=== PATIENT | male | born 1960 | race Caucasian/White ===

== ENCOUNTER 2017-09-29 16:37 | Inpatient (IN) | payer MEDICAID ==
[~2017-09-29] VITALS: Ht 175.3 cm; Wt 72.7 kg
[2017-09-29 17:53] LABS: BASOPHILS 0.1 % (0-2); EOSINOPHILS 0.2 % (0-7); HEMATOCRIT 41.9 % (42.0-54.0); IMMATURE GRANULOCYTES 0.3 % (0-5); LYMPHOCYTES 7.6 % (15-50); MCH 29.7 pg (26.0-34.0); MCHC 33.4 g/dL (31.0-37.0); MEAN PLATELET VOLUME 10.7 fL (7.4-10.4); MONOCYTES 6.7 % (2-11); NEUTROPHILS 85.1 % (40-80); PLATELET COUNT 189 10x3/uL (130-400); RBC 4.71 10x6/uL (4.20-6.10); RDW 13.9 % (11.5-14.5); WBC 16.4 10x3/uL (4.8-10.8)
[2017-09-29 17:56] LABS: ALBUMIN 4.2 g/dL (3.4-5.0); ALKALINE PHOSPHATASE 46 U/L (46-116); ALT (SGPT) 25 U/L (10-68); BILIRUBIN - TOTAL 0.55 mg/dL (0.2-1.3); C-REACTIVE PROTEIN 0.7 mg/dL (0.0-0.9); CALC OSMOLALITY 279 mosm/kg (275-300); CALCIUM 8.5 mg/dL (8.5-10.1); CARBON DIOXIDE 27.2 mmol/L (21.0-32.0); CHLORIDE - SERUM 102 mmol/L (98-107); GLUCOSE 99 mg/dL (74-106); POTASSIUM - SERUM 3.2 mmol/L (3.5-5.1); PROTEIN - SERUM 7.6 g/dL (6.4-8.2); SODIUM 139 mmol/L (136-145); UREA NITROGEN 17 mg/dL (7-18); eGFR NON AFRICAN AMERICAN 82 mL/min (90-120)
[2017-09-29 18:57] LABS: ERYTHROCYTE SEDIMENTATION RATE 5 mm/hr (0-20)
[2017-09-29 20:38] VITALS: BP 145/77
[2017-09-29 20:54] VITALS: BP 145/77; BMI 24.8
[2017-09-29] MEDS ORDERED: KLONOPIN1 MG PO (21:13)
[2017-09-29] MEDS ORDERED: PERCOCET 10/3251 TA1 PO (21:15)
[2017-09-29] MEDS ORDERED: ADDERALL 30 MG30 MG PO (21:16)
[2017-09-30] VITALS (7 sets, daily range): BP systolic 119–158; BP diastolic 65–113
[2017-10-01 04:00] VITALS: BP 140/65
[2017-10-01 05:09] LABS: BASOPHILS 0.1 % (0-2); EOSINOPHILS 0.7 % (0-7); HEMATOCRIT 42.9 % (42.0-54.0); HEMOGLOBIN 14.3 g/dL (13.5-17.5); IMMATURE GRANULOCYTES 0.3 % (0-5); LYMPHOCYTES 11.2 % (15-50); MCHC 33.3 g/dL (31.0-37.0); MCV 89.9 fL (80.0-100.0); MONOCYTES 8.2 % (2-11); NEUTROPHILS 79.5 % (40-80); PLATELET COUNT 164 10x3/uL (130-400); RBC 4.77 10x6/uL (4.20-6.10); WBC 14.4 10x3/uL (4.8-10.8)
[2017-10-01 06:10] LABS: ALBUMIN 3.4 g/dL (3.4-5.0); ALKALINE PHOSPHATASE 48 U/L (46-116); ALT (SGPT) 25 U/L (10-68); CHLORIDE - SERUM 102 mmol/L (98-107); GLUCOSE 93 mg/dL (74-106); PROTEIN - SERUM 7.2 g/dL (6.4-8.2); SODIUM 139 mmol/L (136-145); eGFR NON AFRICAN AMERICAN 82 mL/min (90-120)
[2017-10-01 06:15] LABS: CALC OSMOLALITY 276 mosm/kg (275-300); POTASSIUM - SERUM 3.8 mmol/L (3.5-5.1); UREA NITROGEN 11 mg/dL (7-18)
[2017-10-01 08:48] VITALS: BP 129/76
[2017-10-01 12:16] VITALS: Ht 175.3 cm; Wt 72.7 kg
[2017-10-01 13:24] VITALS: BP 138/88
[2017-10-01 16:40] VITALS: BP 159/66
[2017-10-01 19:00] VITALS: BP 123/68
[2017-10-02 04:00] VITALS: BP 113/75
[2017-10-02 05:39] LABS: BASOPHILS 0.2 % (0-2); EOSINOPHILS 1.6 % (0-7); HEMATOCRIT 44.1 % (42.0-54.0); HEMOGLOBIN 14.7 g/dL (13.5-17.5); IMMATURE GRANULOCYTES 0.2 % (0-5); LYMPHOCYTES 12.7 % (15-50); MCH 30.1 pg (26.0-34.0); MCHC 33.3 g/dL (31.0-37.0); MCV 90.4 fL (80.0-100.0); MEAN PLATELET VOLUME 10.7 fL (7.4-10.4); MONOCYTES 9.8 % (2-11); NEUTROPHILS 75.5 % (40-80); PLATELET COUNT 194 10x3/uL (130-400); RBC 4.88 10x6/uL (4.20-6.10); RDW 13.8 % (11.5-14.5); WBC 12.6 10x3/uL (4.8-10.8)
[2017-10-02 06:20] LABS: ALBUMIN 3.5 g/dL (3.4-5.0); ANION GAP 14.3 mmol/L (8-16); BILIRUBIN - TOTAL 0.7 mg/dL (0.2-1.3); CALCIUM 9.4 mg/dL (8.5-10.1); CARBON DIOXIDE 29.7 mmol/L (21.0-32.0); CREATININE - SERUM 1.1 mg/dL (0.6-1.3); PROTEIN - SERUM 7.8 g/dL (6.4-8.2)
[2017-10-02 09:13] VITALS: BP 124/82
[2017-10-02 11:58] VITALS: BP 144/98
[2017-10-02 15:31] LABS: ACID FAST SMEAR Negative (()); AFB SPECIMEN PROCESSING Concentration (())
[2017-10-02 16:47] VITALS: BP 142/101
[2017-10-02 20:00] VITALS: BP 150/78
[2017-10-03] VITALS: BP 128/84
[2017-10-03 04:00] VITALS: BP 115/86
[2017-10-03 05:47] LABS: BASOPHILS 0.2 % (0-2); EOSINOPHILS 2.3 % (0-7); HEMATOCRIT 41.6 % (42.0-54.0); HEMOGLOBIN 13.9 g/dL (13.5-17.5); IMMATURE GRANULOCYTES 0.3 % (0-5); LYMPHOCYTES 12.5 % (15-50); MCH 30.2 pg (26.0-34.0); MCHC 33.4 g/dL (31.0-37.0); MCV 90.4 fL (80.0-100.0); MEAN PLATELET VOLUME 10.4 fL (7.4-10.4); MONOCYTES 11.7 % (2-11); PLATELET COUNT 177 10x3/uL (130-400); RDW 13.6 % (11.5-14.5); WBC 10.4 10x3/uL (4.8-10.8)
[2017-10-03 06:14] LABS: ALKALINE PHOSPHATASE 52 U/L (46-116); ALT (SGPT) 23 U/L (10-68); CALC OSMOLALITY 277 mosm/kg (275-300); CALCIUM 8.9 mg/dL (8.5-10.1); CARBON DIOXIDE 27.9 mmol/L (21.0-32.0); CHLORIDE - SERUM 104 mmol/L (98-107); GLUCOSE 91 mg/dL (74-106); POTASSIUM - SERUM 4.6 mmol/L (3.5-5.1); PROTEIN - SERUM 7.1 g/dL (6.4-8.2); SODIUM 139 mmol/L (136-145); UREA NITROGEN 13 mg/dL (7-18); eGFR NON AFRICAN AMERICAN 82 mL/min (90-120)
[2017-10-03 09:16] VITALS: BP 121/88
[2017-10-03 12:54] VITALS: BP 144/89
[2017-10-03 15:25] LABS: FUNGUS STAIN Final report (())
[2017-10-03 17:05] VITALS: BP 148/94
[2017-10-03 21:25] VITALS: BP 118/74
[2017-10-04 00:50] VITALS: BP 105/79
[2017-10-04 04:50] VITALS: BP 133/68
[2017-10-04 05:54] LABS: BASOPHILS 0.3 % (0-2); EOSINOPHILS 3.3 % (0-7); HEMATOCRIT 40.7 % (42.0-54.0); HEMOGLOBIN 13.7 g/dL (13.5-17.5); IMMATURE GRANULOCYTES 0.2 % (0-5); LYMPHOCYTES 14.5 % (15-50); MCH 30.1 pg (26.0-34.0); MCHC 33.7 g/dL (31.0-37.0); MCV 89.5 fL (80.0-100.0); MEAN PLATELET VOLUME 9.9 fL (7.4-10.4); MONOCYTES 13.6 % (2-11); NEUTROPHILS 68.1 % (40-80); PLATELET COUNT 187 10x3/uL (130-400); RBC 4.55 10x6/uL (4.20-6.10); RDW 13.3 % (11.5-14.5); WBC 8.7 10x3/uL (4.8-10.8)
[2017-10-04 06:16] LABS: ALBUMIN 2.9 g/dL (3.4-5.0); ALKALINE PHOSPHATASE 52 U/L (46-116); ALT (SGPT) 24 U/L (10-68); BILIRUBIN - TOTAL 0.37 mg/dL (0.2-1.3); CALC OSMOLALITY 274 mosm/kg (275-300); CALCIUM 8.6 mg/dL (8.5-10.1); CARBON DIOXIDE 26.6 mmol/L (21.0-32.0); CHLORIDE - SERUM 102 mmol/L (98-107); CREATININE - SERUM 0.8 mg/dL (0.6-1.3); GLUCOSE 85 mg/dL (74-106); POTASSIUM - SERUM 4.1 mmol/L (3.5-5.1); PROTEIN - SERUM 7.1 g/dL (6.4-8.2); SODIUM 138 mmol/L (136-145); UREA NITROGEN 13 mg/dL (7-18); eGFR NON AFRICAN AMERICAN > 90 mL/min (90-120)
[2017-10-04 08:08] VITALS: BP 135/94
[2017-10-04 11:06] VITALS: BP 141/85
[2017-10-04 15:45] VITALS: BP 140/88
[2017-10-04 20:00] VITALS: BP 146/91
[2017-10-05 01:00] VITALS: BP 142/87
[2017-10-05 05:11] VITALS: BP 133/87
[2017-10-05 06:07] LABS: BASOPHILS 0.3 % (0-2); EOSINOPHILS 3.4 % (0-7); HEMATOCRIT 40.4 % (42.0-54.0); HEMOGLOBIN 13.6 g/dL (13.5-17.5); IMMATURE GRANULOCYTES 0.3 % (0-5); LYMPHOCYTES 12.7 % (15-50); MCH 29.8 pg (26.0-34.0); MCHC 33.7 g/dL (31.0-37.0); MCV 88.4 fL (80.0-100.0); MEAN PLATELET VOLUME 10.5 fL (7.4-10.4); MONOCYTES 10.4 % (2-11); NEUTROPHILS 72.9 % (40-80); PLATELET COUNT 209 10x3/uL (130-400); RBC 4.57 10x6/uL (4.20-6.10); WBC 9.7 10x3/uL (4.8-10.8)
[2017-10-05 06:29] LABS: ALBUMIN 2.9 g/dL (3.4-5.0); ALKALINE PHOSPHATASE 49 U/L (46-116); ALT (SGPT) 22 U/L (10-68); BILIRUBIN - TOTAL 0.36 mg/dL (0.2-1.3); CALC OSMOLALITY 275 mosm/kg (275-300); CALCIUM 8.4 mg/dL (8.5-10.1); CARBON DIOXIDE 25.1 mmol/L (21.0-32.0); CHLORIDE - SERUM 104 mmol/L (98-107); CREATININE - SERUM 0.9 mg/dL (0.6-1.3); GLUCOSE 86 mg/dL (74-106); POTASSIUM - SERUM 3.7 mmol/L (3.5-5.1); PROTEIN - SERUM 6.9 g/dL (6.4-8.2); SODIUM 138 mmol/L (136-145); UREA NITROGEN 15 mg/dL (7-18); eGFR NON AFRICAN AMERICAN > 90 mL/min (90-120)
[2017-10-05 08:16] VITALS: BP 134/86
[2017-10-05 11:56] VITALS: BP 132/75
[2017-10-05 13:07] LABS: NEUT - BF 98 %
[2017-10-05 15:48] VITALS: BP 136/90
[2017-10-05 20:00] VITALS: BP 163/91
[2017-10-06 01:00] VITALS: BP 125/77
[2017-10-06 04:30] VITALS: BP 107/80
[2017-10-06 05:05] LABS: BASOPHILS 0.3 % (0-2); EOSINOPHILS 3.9 % (0-7); HEMATOCRIT 42.7 % (42.0-54.0); HEMOGLOBIN 14.2 g/dL (13.5-17.5); IMMATURE GRANULOCYTES 0.3 % (0-5); LYMPHOCYTES 17.5 % (15-50); MCHC 33.3 g/dL (31.0-37.0); MCV 90.1 fL (80.0-100.0); MEAN PLATELET VOLUME 10.4 fL (7.4-10.4); MONOCYTES 11.9 % (2-11); NEUTROPHILS 66.1 % (40-80); PLATELET COUNT 241 10x3/uL (130-400); RBC 4.74 10x6/uL (4.20-6.10); RDW 13.2 % (11.5-14.5); WBC 8.7 10x3/uL (4.8-10.8)
[2017-10-06 05:16] LABS: CALC OSMOLALITY 281 mosm/kg (275-300); CALCIUM 9.1 mg/dL (8.5-10.1); CHLORIDE - SERUM 107 mmol/L (98-107); GLUCOSE 91 mg/dL (74-106); SODIUM 141 mmol/L (136-145); UREA NITROGEN 15 mg/dL (7-18); eGFR NON AFRICAN AMERICAN 82 mL/min (90-120)
[2017-10-06 10:05] VITALS: BP 139/79
[2017-10-06 12:22] VITALS: BP 133/90
[2017-10-06 16:58] VITALS: BP 123/87
[2017-10-06 21:00] VITALS: BP 141/83
[2017-10-07 02:30] VITALS: BP 115/67
[2017-10-07 05:00] VITALS: BP 131/84
[2017-10-07 05:19] LABS: BASOPHILS 0.4 % (0-2); CALCIUM 9.1 mg/dL (8.5-10.1); CARBON DIOXIDE 30.5 mmol/L (21.0-32.0); CHLORIDE - SERUM 103 mmol/L (98-107); EOSINOPHILS 3.1 % (0-7); GLUCOSE 87 mg/dL (74-106); HEMATOCRIT 48.5 % (42.0-54.0); IMMATURE GRANULOCYTES 0.4 % (0-5); MCH 29.9 pg (26.0-34.0); MCV 90.5 fL (80.0-100.0); MEAN PLATELET VOLUME 10.3 fL (7.4-10.4); MONOCYTES 10.6 % (2-11); NEUTROPHILS 72.5 % (40-80); RBC 5.36 10x6/uL (4.20-6.10); RDW 12.9 % (11.5-14.5); SODIUM 142 mmol/L (136-145); WBC 10.7 10x3/uL (4.8-10.8); eGFR NON AFRICAN AMERICAN 82 mL/min (90-120)
[2017-10-07 05:20] LABS: CALC OSMOLALITY 280 mosm/kg (275-300); PLATELET COUNT 291 10x3/uL (130-400); UREA NITROGEN 11 mg/dL (7-18)
[2017-10-07 09:07] VITALS: BP 135/90
[2017-10-07 12:51] VITALS: BP 135/84
[2017-10-07 15:09] LABS: ACID FAST SMEAR Negative (()); AFB SPECIMEN PROCESSING Concentration (())
[2017-10-07 16:41] VITALS: BP 128/76
[2017-10-07 20:00] VITALS: BP 118/78
[2017-10-08 01:00] VITALS: BP 109/67
[2017-10-08 04:00] VITALS: BP 108/68
[2017-10-08 04:36] LABS: BASOPHILS 0.3 % (0-2); EOSINOPHILS 4.1 % (0-7); HEMATOCRIT 41.2 % (42.0-54.0); HEMOGLOBIN 13.9 g/dL (13.5-17.5); IMMATURE GRANULOCYTES 0.4 % (0-5); LYMPHOCYTES 13.5 % (15-50); MCH 30.1 pg (26.0-34.0); MCHC 33.7 g/dL (31.0-37.0); MCV 89.2 fL (80.0-100.0); MEAN PLATELET VOLUME 10.1 fL (7.4-10.4); MONOCYTES 12.1 % (2-11); NEUTROPHILS 69.6 % (40-80); PLATELET COUNT 254 10x3/uL (130-400); RBC 4.62 10x6/uL (4.20-6.10); WBC 10.4 10x3/uL (4.8-10.8)
[2017-10-08 04:52] LABS: CALC OSMOLALITY 282 mosm/kg (275-300); CALCIUM 8.5 mg/dL (8.5-10.1); CARBON DIOXIDE 27.7 mmol/L (21.0-32.0); CHLORIDE - SERUM 106 mmol/L (98-107); GLUCOSE 87 mg/dL (74-106); POTASSIUM - SERUM 3.7 mmol/L (3.5-5.1); SODIUM 142 mmol/L (136-145); eGFR NON AFRICAN AMERICAN 82 mL/min (90-120)
[2017-10-08 04:54] LABS: UREA NITROGEN 14 mg/dL (7-18)
[2017-10-08 08:52] VITALS: BP 110/71
[2017-10-08] MEDS ORDERED: VIBRAMYCIN 100100 MG PO (11:01)
[2017-10-08] MEDS ORDERED: FLORAJEN3 CAPS460 MG PO (11:03)
[2017-10-08 11:29] VITALS: BP 112/68
[2017-10-10 14:24] LABS: FUNGUS STAIN Final report (())
[2017-10-29 10:12] LABS: FUNGUS MYCOLOGY CULTURE Final report (())
[2017-11-05 15:09] LABS: FUNGUS MYCOLOGY CULTURE Final report (())
== END 2017-10-08 14:27 | disposition home or self-care (01) | DRG 603 ==
LOC: D.ER 16:37 → D.M2 17:37 → D.EDHOLD 17:37 → D.M2 17:52
PROVIDERS: Emergency Medicine; Family Medicine; Internal Medicine Nephrology; Orthopaedic Surgery Foot and Ankle Surgery
PROC: 0S9C3ZZ Drainage of Right Knee Joint, Percutaneous Approach (ICD-10-PCS; principal; 2017-09-30)
PROC: 0S9C3ZZ Drainage of Right Knee Joint, Percutaneous Approach (ICD-10-PCS; 2017-10-05)
DX: L03.115 Cellulitis of right lower limb (principal); E87.6 Hypokalemia; F41.9 Anxiety disorder, unspecified; R21 Rash and other nonspecific skin eruption

== ENCOUNTER → 2017-10-22 16:31 | Outpatient (CLI) | payer MEDICAID ==
[2017-10-01 12:16] VITALS: BMI 24.8
[~2017-10-22 16:31] MED LIST: ADDERALL 30 MG30 MG PO; FLORAJEN3 CAPS460 MG PO; KLONOPIN1 MG PO; PERCOCET 10/3251 TA1 PO; VIBRAMYCIN 100100 MG PO
[2017-10-22 19:35] LABS: EOS BF 6 %; MACROPHAGES BF 2 %; NEUT - BF 44 %
== END | disposition home or self-care (01) ==
LOC: D.LABREF 16:31
PROVIDERS: Nurse Practitioner Family
DX: M25.561 Pain in right knee (principal)

== ENCOUNTER 2017-10-26 09:36 | Day surgery (SDC) | payer MEDICAID ==
[~2017-10-26] VITALS: Ht 175.3 cm; Wt 72.6 kg
--- NOTE | ~2017-10-26 | OP ---
PATIENT NAME: SEVERINO THOMAS MEDICAL RECORD: [id number] :64 LOCATION:.[facility] ADMISSION DATE: SURGEON: MARLENY LOPEZ MD DATE OF OPERATION: 10/26/2017 PREOPERATIVE DIAGNOSIS: Right prepatellar septic bursitis. POSTOPERATIVE DIAGNOSIS: Right prepatellar septic bursitis. PROCEDURE: Excisional debridement of right prepatellar septic bursitis. SURGEON: Marleny Lopez MD ANESTHESIA: General. INTRAOPERATIVE COMPLICATIONS: None. SUMMARY OF PATHOLOGIC FINDINGS: Aggregate squared-cm 60. No cultures were taken. OPERATIVE SUMMARY IN DETAIL: After obtaining the appropriate preoperative orthopedic surgery consent as well as anesthetic consultation, evaluation, and clearance, the patient was brought to the operative room and placed in supine position. After adequate general laryngeal mask airway was administered, the patient's right lower extremity was prepped and draped in routine sterile fashion. The bursa was opened, purulence was noted. Cultures were taken and at this point, a combination of scalpel, rongeur and curettage was utilized to completely clean the bursa, which was inflamed to the lateral recesses of the prepatellar bursa. Approximately a liter of fluid was irrigated through the bursa. The bursa was then packed with 1-inch iodoform gauze. Sterile dressings were applied. The patient was awakened and taken to recovery room in stable condition. All final needle and sponge counts were correct. TRANSINT:[id number] Voice Confirmation ID: [id number] DOCUMENT ID: [id number] MARLENY LOPEZ MD at 0802 CC: [id number] DICTATION DATE: 11/01/17 1122 HOG TENDER: 11/01/17 1400 [facility] 10/26/17 [id number] [place] [id number]
[2017-10-26 10:49] VITALS: BP 119/85; Ht 175.3 cm; Wt 72.6 kg
== END 2017-10-26 16:50 | disposition home or self-care (01) ==
LOC: D.OPS 09:36 → D.PAN 11:30 → D.OPS 16:50
DX: M71.121 Other infective bursitis, right elbow (principal)

== ENCOUNTER → 2018-03-20 12:43 | Outpatient (CLI) | payer MEDICAID ==
[2017-10-26 10:49] VITALS: BMI 23.6
== END | disposition home or self-care (01) ==
LOC: D.MRI 12:43
DX: M25.361 Other instability, right knee (principal)

== ENCOUNTER 2018-06-18 05:33 | Day surgery (SDC) | payer MEDICAID ==
[~2018-06-18] VITALS: Ht 175.3 cm; Wt 86.7 kg
[~2018-06-18 05:33] MED LIST changes: +FLOMAX0.4 MG PO; +SEROQUEL300 MG PO; +ZYPREXA15 MG PO
[2018-06-18 05:53] LABS: BASOPHILS 0.4 % (0-2); EOSINOPHILS 2.1 % (0-7); HEMATOCRIT 39.9 % (42.0-54.0); HEMOGLOBIN 13.5 g/dL (13.5-17.5); IMMATURE GRANULOCYTES 0.3 % (0-5); LYMPHOCYTES 18.3 % (15-50); MCH 30.1 pg (26.0-34.0); MCHC 33.8 g/dL (31.0-37.0); MCV 88.9 fL (80.0-100.0); MEAN PLATELET VOLUME 10.3 fL (7.4-10.4); MONOCYTES 10.3 % (2-11); NEUTROPHILS 68.6 % (40-80); RBC 4.49 10x6/uL (4.20-6.10); RDW 13.7 % (11.5-14.5); WBC 7.5 10x3/uL (4.8-10.8)
[2018-06-18 06:00] LABS: PLATELET COUNT 184 10x3/uL (130-400)
[2018-06-18 06:26] LABS: CALCIUM 9.2 mg/dL (8.5-10.1); CARBON DIOXIDE 27.4 mmol/L (21.0-32.0); CREATININE - SERUM 1.2 mg/dL (0.6-1.3); POTASSIUM - SERUM 4.4 mmol/L (3.5-5.1)
[2018-06-18 06:38] VITALS: BP 116/76; Ht 175.3 cm; Wt 86.7 kg
[2018-06-18] MEDS ORDERED: DILAUDID2 MG PO (08:26)
--- NOTE | 2018-06-18 09:32 | NUR ---
0930 CRITERIA AND TIME FRAME FOR DISCHARGE GIVEN. FAMILY AT BEDSIDE.
--- NOTE | 2018-06-25 11:56 | OP ---
PATIENT NAME: SEVERINO THOMAS MEDICAL RECORD: [id number] :64 LOCATION:[facility] ADMISSION DATE: SURGEON: SHYAM VALDES MD DATE OF OPERATION: 06/18/2018 PREOPERATIVE DIAGNOSES: 1. Right inguinal hernia. 2. Benign prostatic hypertrophy. 3. Chronic back pain. POSTOPERATIVE DIAGNOSES: 1. Right inguinal hernia. 2. Benign prostatic hypertrophy 3. Chronic back pain. PROCEDURE: Right inguinal hernia repair with medium PHS mesh. SURGEON: Shyam Valdes MD ATTENDING PHYSICIAN: Katherin Haas APRN REPORT OF PROCEDURE: The patient's right groin was prepped and draped in sterile fashion. An oblique incision was made above the inguinal ligament. Electrocautery was used to dissect through the subcutaneous tissues down to the external oblique fascia. This fascia was opened up to the external ring using electrocautery. The spermatic cord was elevated and a Estefania was then placed around it. At this point, the ilioinguinal nerves were found and high ligated. The patient had a very lax inguinal floor consistent with a direct hernia defect. We opened up the inguinal floor and opened up the preperitoneal space of Retzius. A medium PHS mesh was then inserted and sutured down on all 4 sides using multiple interrupted 0 Vicryls. The wound was then irrigated out with normal saline and care was taken to assure there was no sign of any bleeding. External oblique fascia was then closed with running 2-0 Vicryls, Nikolai's was closed with interrupted 3-0 Vicryl and the skin was closed with running subcutaneous 5-0 Monocryl. A 10 mL of 0.25% Marcaine with epinephrine was infused into the surrounding tissues and the wound was dressed appropriately. COMPLICATIONS: None. CONDITION: Stable. ANESTHESIA: General endotracheal and local. BLOOD LOSS: Minimal. TRANSINT:[id number] Voice Confirmation ID: [id number] DOCUMENT ID: [id number] OPERATIVE REPORT [id number] WILLIAMSEVERINO SHYAM THEODORE MD at 1156 CC: COLTON CHILDS MD [id number] DICTATION DATE: 06/18/18 0833 CLINICAL WRITER: 06/18/18 1006 [facility] 06/18/18 [place] [id number]
== END 2018-06-18 10:45 | disposition home or self-care (01) ==
LOC: D.OPS 05:33 → D.PAN 08:00 → D.OPS 08:45 → D.PAN 08:45 → D.OPS 10:00 → D.PAN 10:00 → D.OPS 10:45
PROVIDERS: Surgery
DX: K40.90 Unilateral inguinal hernia, without obstruction or gangrene, not specified as recurrent (principal); N40.0 Benign prostatic hyperplasia without lower urinary tract symptoms; G89.29 Other chronic pain; M54.9 Dorsalgia, unspecified; Z01.812 Encounter for preprocedural laboratory examination